=== PATIENT | female | born 1975 | race Caucasian/White ===

== ENCOUNTER → 2022-01-13 | Outpatient (CLI) | payer BC ==
[~2022-01-13] MED LIST: BARIUM SULFATE 40% (APPLE) 148 GM PWD. PO ONE
--- NOTE | 2022-01-13 11:52 | RAD ---
EXAMINATION: DG VIDEO SWALLOW STUDY 01/13/2022 10:18 AM HISTORY: Dysphagia COMPARISON: None. TECHNIQUE: The patient was observed swallowing various consistencies of barium under intermittent flu oroscopy. FINDINGS: There is no penetration or aspiration with any consistencies. Normal oral and pharyngeal ph ases of swallowing. Total fluoroscopic time:1.4 minutes. Dose:4.7 mGy. 0 images saved. IMPRESSION: Normal video swallow study. Please see the speech pathologist's report for details. Electronically signed by: Mónica Pak MD (01/13/2022 11:49 AM) [id number]
== END ==
LOC: RAD 10:00
PROVIDERS: ATTEND Internal Medicine Critical Care Medicine
DX: R13.10 Dysphagia, unspecified (principal)
CPT/HCPCS: 74230; 92611-GN

== ENCOUNTER → 2022-01-29 | Outpatient (CLI) | payer BC ==
--- NOTE | 2022-01-29 12:56 | RAD ---
AP and Lateral Views of the Chest 01/29/2022 11:01 AM Indication: Pneumonia Comparison: e Findings: There is no focal consolidation or infiltrate identified. The cardiomediastinal silhouette is within normal limits. There is no evidence of pneumothorax or pleural effusion. No acute osseous a bnormalities are identified. Impression: No evidence of acute cardiopulmonary process. Electronically signed by: Stephan Garcia MD (01/29/2022 12:54 PM) [id number]
== END ==
LOC: RAD 10:51
PROVIDERS: ATTEND Internal Medicine Critical Care Medicine
DX: J18.9 Pneumonia, unspecified organism (principal)
CPT/HCPCS: 71046